=== PATIENT | male | born 1955 | race Caucasian/White ===

== ENCOUNTER 2024-03-21 13:03 | Emergency (ER) | payer BC, MEDICARE ==
[~2024-03-21] VITALS: Ht 167.6 cm; Wt 86.0 kg
[~2024-03-21 13:03] MED LIST: AMLO10TA80 PO; ASPI-1406 PO; ATOR-2 PO; DILT30TA37 PO; FLUO20CA39 PO; FOLI-43 PO; KEPP500 MT; LIP40 PO; LOSA25TA26 PO; METF500T60 PO; METO-539 PO
[2024-03-21 13:10] VITALS: O2SAT 97
[2024-03-21 13:56] LABS: BASOPHILS % 0.5 % (0.0-2.0); EOSINOPHILS % 2.4 % (0.0-5.0); HEMATOCRIT. 39.4 % (42.0-52.0); HEMOGLOBIN. 13.1 g/dL (14.0-18.0); LYMPHOCYTES % 22.2 % (20.0-50.0); MEAN CORPUSCULAR HGB CONC 33.4 g/dL (31.0-37.0); MEAN CORPUSCULAR VOLUME 89.9 fL (80.0-94.0); MEAN PLATELET VOLUME 8.7 fl (7.4-10.4); MONOCYTES % 5.4 % (2.0-8.0); NEUTROPHILS % 69.5 % (40.0-76.0); PLATELET 187 x1000/uL (130-400); RED BLOOD CELL COUNT 4.38 mill/uL (4.7-6.1); RED CELL DISTRIBUTION WIDTH 13.2 % (11.6-14.6); WHITE BLOOD COUNT 5.6 x1000/uL (4.5-11.0)
[2024-03-21 14:07] LABS: CARBON DIOXIDE 25 mEq/L (21-32); CHLORIDE 102 mEq/L (98-107); POTASSIUM 3.3 mEq/L (3.5-5.1); SODIUM 136 mEq/L (136-145)
[2024-03-21 14:08] LABS: CALCIUM 8.7 mg/dL (8.7-10.4)
[2024-03-21 14:12] LABS: CREATININE 0.8 mg/dL (0.6-1.3)
[2024-03-21 14:13] LABS: ETHANOL BLOOD 289 mg/dL (<10); GLUCOSE 164 mg/dL (70-105); UREA NITROGEN BLOOD 8 mg/dL (9-23)
[2024-03-21 14:14] LABS: ALANINE AMINOTRANSFERASE 14 IU/L (10-49); ALBUMIN 4.3 g/dL (3.2-4.8); ASPARTATE AMINOTRANSFERASE 16 IU/L (<34)
[2024-03-21 14:15] LABS: BILIRUBIN TOTAL 0.5 mg/dL (0.1-1.0); PROTEIN TOTAL 6.8 g/dL (6.0-8.3)
[2024-03-21 17:10] VITALS: BP 147/66; PULSE 68; RESP 16; TEMP 98.1
== END 2024-03-21 17:23 | disposition home or self-care (01) ==
LOC: ER 13:03
DX: F10.129 Alcohol abuse with intoxication, unspecified (principal); E11.9 Type 2 diabetes mellitus without complications; I10 Essential (primary) hypertension; R51.9 Headache, unspecified; Z86.73 Personal history of transient ischemic attack (TIA), and cerebral infarction without residual deficits; Y90.8 Blood alcohol level of 240 mg/100 ml or more
CPT/HCPCS: 36415; 80053; 80320; 82962; 85025; 99284; G0480